=== PATIENT | male | born 1955 | race Caucasian/White ===

== ENCOUNTER 2016-12-20 14:21 | Emergency (ER) | payer SELFPAY ==
[2016-12-20 15:56] VITALS: BP 108/70; PULSE 48; RESP 20; TEMP 97.5
--- NOTE | 2016-12-20 15:56 | C.PDOC ---
History Of Present Illness 61 y/o male presents to ED with complaints of itchy rash to front chest and upper back for 2 months. Pt has been treating at home with benadryl and otc ointment but no relief noted. Patient also requests a refill for meclizine. Notes he has h/o vertigo, has been worked up for it the past, no new symptoms. Notes symptoms improved with Meclizine but can out. Denies falls, loc, current dizziness, no chest pain, sob, difficulty breathing or swallowing, or any other complaints at this time. No known allergens. Time Seen by Provider: 12/20/16 15:13 Chief Complaint (Nursing): Abnormal Skin Integrity History Per: Patient, Family History/Exam Limitations: no limitations Onset/Duration Of Symptoms: Days Current Symptoms Are (Timing): Still Present Quality Of Symptoms: Itching Past Medical History Reviewed: Historical Data, Nursing Documentation, Vital Signs Vital Signs: Last Vital Signs Temp 97.5 F L 12/20/16 15:56 Pulse 48 L 12/20/16 15:56 Resp 20 12/20/16 15:56 BP 108/70 12/20/16 15:56 Pulse Ox 100 12/20/16 20:23 Surgical History: No Surg Hx Family History: States: No Known Family Hx - Social History Hx Tobacco Use: Yes Hx Alcohol Use: No Hx Substance Use: No - Immunization History Hx Tetanus Toxoid Vaccination: No Hx Influenza Vaccination: No Hx Pneumococcal Vaccination: No Review Of Systems Except As Marked, All Systems Reviewed And Found Negative. Constitutional: Negative for: Fever, Chills Cardiovascular: Negative for: Chest Pain Respiratory: Negative for: Shortness of Breath Gastrointestinal: Negative for: Nausea, Vomiting Skin: Positive for: Rash Neurological: Negative for: Weakness, Numbness Physical Exam - Physical Exam Appears: Non-toxic, No Acute Distress Skin: Warm, Dry, Rash (well demarcated ertyhamtous rash to upper back and chest , some scaling, some satellite lesions) Head: Atraumatic, Normacephalic Eye(s): bilateral: Normal Inspection, PERRL, EOMI Nose: Normal Oral Mucosa: Moist Throat: Normal, No Erythema, No Exudate, No Drooling Neck: Normal ROM, Supple Chest: Symmetrical Cardiovascular: Rhythm Regular, No Murmur Respiratory: Normal Breath Sounds, No Rales, No Rhonchi, No Wheezing Neurological/Psych: Oriented x3, Normal Speech ED Course And Treatment O2 Sat by Pulse Oximetry: 100 (RA) Pulse Ox Interpretation: Normal Progress Note: Repeat HR: 65. Discussed with pt and signs of concerna nd follow up with agate setter in 1-2 days. Disposition - Disposition Disposition: HOME/ ROUTINE Disposition Time: 15:52 Condition: STABLE Additional Instructions: Vaya a bell mdico o la clnica en 1-3 liz sin falta, para mas evaluacin. [place] los medicamentos liz indicado. Volver a la robe de emergencia en cualquier momento si los sntomas persisten o empeoran. Prescriptions: Clotrimazole/Betamethasone [Lotrisone] 15 gm EXT BID 14 Days tube Meclizine [Meclizine*] 25 mg PO BID PRN #20 tab PRN Reason: Dizziness Instructions: Skin Yeast Infection (ED) Forms: [employer] (Nepali) Print Language: TAJIK - Clinical Impression Clinical Impression: Tinea corporis - PA / RATE ANALYST / Resident Statement MD/DO has reviewed & agrees with the documentation as recorded. - Scribe Statement The provider has reviewed the documentation as recorded by the Scribe Shazia Alexis All medical record entries made by the Scribe were at my direction and personally dictated by me. I have reviewed the chart and agree that the record accurately reflects my personal performance of the history, physical exam, medical decision making, and the department course for this patient. I have also personally directed, reviewed, and agree with the discharge instructions and disposition.
[2016-12-20 20:24] VITALS: O2SAT 100
== END 2016-12-20 16:09 | disposition home or self-care (01) ==
LOC: C.ER 14:21
DX: B35.4 Tinea corporis (principal)

== ENCOUNTER 2017-07-30 15:19 | Emergency (ER) | payer OTHER ==
[2017-07-30 15:28] VITALS: RESP 20
--- NOTE | 2017-07-30 15:49 | C.PDOC ---
History Of Present Illness 62-year-old male, presents to the emergency department with complaints of elbow pain. Patient states that one week ago, he slipped while on truck and fell, landing directly on right elbow. Patient reports that he was able to move the arm, however, swelling persisted, prompting visit. Denies numbness/weakness. Time Seen by Provider: 07/30/17 15:24 Chief Complaint (Nursing): Upper Extremity Problem/Injury History Per: Patient History/Exam Limitations: no limitations Past Medical History Reviewed: Historical Data, Nursing Documentation, Vital Signs Vital Signs: Last Vital Signs Temp 98.2 F 07/30/17 15:25 Pulse 57 L 07/30/17 15:25 Resp 20 07/30/17 15:25 BP 151/92 H 07/30/17 15:25 Pulse Ox 97 07/30/17 16:37 Family History: States: No Known Family Hx - Social History Hx Tobacco Use: Yes Hx Alcohol Use: No Hx Substance Use: No - Immunization History Hx Tetanus Toxoid Vaccination: No Hx Influenza Vaccination: No Hx Pneumococcal Vaccination: No Review Of Systems Constitutional: Negative for: Fever, Weakness Musculoskeletal: Positive for: Other (right elbow pain) Skin: Negative for: Rash Neurological: Negative for: Weakness, Numbness Physical Exam - Physical Exam Appears: Non-toxic, No Acute Distress Skin: Normal Color, Warm, Dry, No Rash Head: Normacephalic Eye(s): bilateral: Normal Inspection Nose: Normal Oral Mucosa: Moist Lips: Normal Appearing Extremity: Normal ROM, No Tenderness, Capillary Refill (<2 seconds), No Deformity, Other (Hematoma to the posterior elbow. No tenderness. (+)FROM) Extremity: Bilateral: Normal Color And Temperature Pulses: Left Brachial: Normal, Right Brachial: Normal Neurological/Psych: Oriented x3, Normal Speech, Normal Motor, Normal Sensation Gait: Steady ED Course And Treatment O2 Sat by Pulse Oximetry: 97 (RA) Pulse Ox Interpretation: Normal Medical Decision Making Medical Decision Making: Plan: * XR R Elbow * Reassess and Disposition Xrays are negative for fracture. Sling applied. Disposition - Disposition Referrals: Jagjit Shaw III, MD [Staff Provider] - Paige Leung MD [Staff Provider] - Disposition: HOME/ ROUTINE Disposition Time: 16:36 Condition: GOOD Additional Instructions: Follow up with the Orthopedist for further evaluation within 1-2 weeks. Return if worsened. Prescriptions: Naproxen [Naprosyn] 500 mg PO BID #20 tab Instructions: Contusion (DC) Forms: [facility] (Khmer), Work Excuse Print Language: SLOVAK - Clinical Impression Clinical Impression: Traumatic hematoma of right elbow - Scribe Statement The provider has reviewed the documentation as recorded by the Scribe (Diana Leung) All medical record entries made by the Scribe were at my direction and personally dictated by me. I have reviewed the chart and agree that the record accurately reflects my personal performance of the history, physical exam, medical decision making, and the department course for this patient. I have also personally directed, reviewed, and agree with the discharge instructions and disposition.
--- NOTE | 2017-07-30 16:42 | RAD ---
PROCEDURE: Radiographs of the right elbow. HISTORY: Elbow injury COMPARISON: No prior. FINDINGS: BONES: No evidence of acute displaced fracture nor dislocation. . There is however marked dorsal soft tissue swelling over the olecranon consistent with a bursitis positive posttraumatic however concomitant superinfection not excluded. Clinical correlation recommended. No subcutaneous emphysema. Rule out infectious bursitis JOINTS: No significant osteoarthritis. . SOFT TISSUES: As above JOINT EFFUSION: No significant joint effusion OTHER FINDINGS: None. IMPRESSION: Marked the dorsal soft tissue swelling overlying the olecranon consistent with bursitis likely posttraumatic however superinfection not excluded.
[2017-07-30 16:50] VITALS: BP 142/72; PULSE 47; TEMP 98.7; O2SAT 96
== END 2017-07-30 16:50 | disposition home or self-care (01) ==
LOC: C.ER 15:19
DX: S50.01XA Contusion of right elbow, initial encounter (principal); W01.0XXA Fall on same level from slipping, tripping and stumbling without subsequent striking against object, initial encounter